=== PATIENT | female | born 1950 | race Caucasian/White ===

== ENCOUNTER 2016-06-09 08:20 | Day surgery (SDC) | payer MEDICAID ==
[~2016-06-09 08:20] MED LIST: ALBUTEROL2.5 MG/3 M NEB; ALLOPURINOL300 M1 PO; AMOXICILLIN500 M1 PO; ASPIRIN81 M1 PO; ASPIRIN81 MG; CEFAZOLIN2 GM/50 ML IV; DEXAMETHAS10 MG/1 M1; ENALAPRIL MALEA20 MG; ENALAPRIL MALEAT5 M1 PO; FERROUS SU325 ( 65 ); FUROSEMIDE20 MG; GLIPIZIDE XL10 MG; HCTZ/RESERPINE/1 TAB; HYDROCHLOROTHIA25 M1 PO; LANTUS100 UNITS/ SC; LASIX20 M1 PO; LIPITOR40 M1 PO; LIPITOR40 MG; METFORMIN HCL500 MG; METOPROLOL TAR100 MG; NORVASC5 M2 PO; NOVOLOG100 UNITS/ SC; NYSTATIN15 G2 TOP; REGRANEX TOP; TOPROL XL100 M1 PO; TRIAMCINOLONE A15 G4 TOP; VITAMIN D35000 UNI3 PO
[2016-06-09 10:03] LABS: BASO % 0.5 % (0-2); BASO ABSOLUTE COUNT 0.1 tho/cmm (0.0-0.2); EOS % 1.1 % (0-7); EOSINOPHIL ABSOLUTE COUNT 0.1 tho/cmm (0.0-0.7); HCT-HEMATOCRIT 33.9 % (34.0-49.0); HGB-HEMOGLOBIN 10.7 gm/dl (12.0-15.5); IMMATURE GRANULOCYTES ABSOLUTE 0.03 tho/cmm (0-0.03); IMMATURE GRANULOCYTES PERCENT 0.3 % (0-0.3); LYMPH % 20.6 % (20-45); LYMPH ABSOLUTE COUNT 2.3 tho/cmm (0.8-4.5); MCHC MEAN CORPUSCULAR HGB CONC 31.6 % (32.0-36.0); MCV (MEAN CELL VOLUME) 88.7 fl (82.0-96.0); MONO % 4.6 % (0-12); MONOCYTE ABSOLUTE COUNT 0.5 tho/cmm (0.0-1.2); NEUTROPHILS % 72.9 % (40-80); PLATELET COUNT 300 tho/cmm (150-450); RED BLOOD COUNT 3.82 mil/cmm (4.00-5.20); RED CELL DISTRIBUTION WIDTH 14.7 % (12.4-16.4)
[2016-06-09 10:16] LABS: ANION GAP 9 mmol/L (0-20); BLOOD UREA NITROGEN 48 mg/dl (6-24); CALCIUM 9.4 mg/dl (8.5-10.5); CARBON DIOXIDE-VENOUS 31 mmol/L (22-32); CHLORIDE 108 mmol/l (96-110); CREATININE 1.87 mg/dl (0.50-1.10); GLUCOSE 89 mg/dL (70-110); POTASSIUM 4.7 mmol/L (3.7-5.1); SODIUM 143 mmol/L (135-145); eGFR VALUE FOR BLACK 32 mL/Min
== END 2016-06-09 15:50 ==
LOC: SHSB 08:20 → ORW 10:54 → SHSB 11:50
PROVIDERS: Anesthesiology; Surgery
PROC: 0HRMX73 Replacement of Right Foot Skin with Autologous Tissue Substitute, Full Thickness, External Approach (ICD-10-PCS; principal; 2016-06-09)
DX: E11.621 Type 2 diabetes mellitus with foot ulcer (principal); L97.519 Non-pressure chronic ulcer of other part of right foot with unspecified severity; I12.9 Hypertensive chronic kidney disease with stage 1 through stage 4 chronic kidney disease, or unspecified chronic kidney disease; E11.22 Type 2 diabetes mellitus with diabetic chronic kidney disease; N18.4 Chronic kidney disease, stage 4 (severe); E11.40 Type 2 diabetes mellitus with diabetic neuropathy, unspecified; E66.01 Morbid (severe) obesity due to excess calories; E78.5 Hyperlipidemia, unspecified; J45.909 Unspecified asthma, uncomplicated; Z79.4 Long term (current) use of insulin; Z79.82 Long term (current) use of aspirin; Z79.899 Other long term (current) drug therapy; Z90.49 Acquired absence of other specified parts of digestive tract; Z98.51 Tubal ligation status; Z98.890 Other specified postprocedural states
CPT/HCPCS: J0171; J2250; J3370; J7030